=== PATIENT | female | born 1990 | race Caucasian/White ===

== ENCOUNTER → 2016-11-07 | Outpatient (CLI) | payer OTHER ==
--- NOTE | 2016-11-07 10:28 | REP ---
RIGHT BREAST MAMMOGRAM AND ULTRASOUND: Right breast mammogram performed in the MLO and CC projections. Patient reports a palpable abnormality at about 10 o'clock. The area is marked on the skin with a triangular marker. Breast parenchyma is extremely dense limiting the sensitivity of the mammogram. No definite mass is seen. No clustered microcalcifications are seen. Real-time sonographic evaluation of the right breast is performed in the 10 o'clock region of the right breast at the site of the reported palpable abnormality. Small oval hypoechoic nodule is seen measuring 4 x 2 x 5 mm. This is located about 3 to 4 cm from the nipple. There is no through transmission. It could represent a complex cyst or small solid nodule. IMPRESSION: ACR 4 suspicious. In the region of the reported palpable abnormality there is no evidence of nodule by mammography although the mammogram is limited by extremely dense breast parenchyma. By ultrasound there is a hypoechoic nodule at 10 o'clock measuring 4 x 2 x 5 mm which could represent a complex cyst or solid nodule. Recommend ultrasound guided biopsy. This mammogram was interpreted with the aid of an FDA-approved computer-aided detection system. The patient states she/he had a clinical breast exam in 10/2016. The patient letter being requested is M4. Signed by Prasanna Mahajan MD 11/07/2016 03:19 P
== END ==
LOC: M RAD 08:18
PROVIDERS: ATTEND Family Medicine
DX: R92.8 Other abnormal and inconclusive findings on diagnostic imaging of breast (principal)